=== PATIENT | female | born 1975 | race Caucasian/White ===

== ENCOUNTER 2019-02-26 08:30 | Day surgery (SDC) | payer BC ==
[~2019-02-26] VITALS: Ht 172.7 cm; Wt 97.6 kg
[~2019-02-26 08:30] MED LIST: HCTZ12.5TAB PO; MICROGESTIN 1/21 TAB PO; NORCO 325 MG-51 TAB PO; PERCOCET 325 MG1 TA2 PO; SYNTHROID0.125 MG/T PO; ZOFRAN ODT4 MG PO
[2019-02-26 09:23] VITALS: BP 137/63; PULSE 82; TEMP 97.2
[2019-02-26 09:59] LABS: CALCIUM 9.1 mg/dL (8.4-10.2); CREATININE, serum 0.76 (0.52-1.25)
[2019-02-26] MEDS ORDERED: CHANTIX 1MG1 MG PO (10:04)
[2019-02-26 13:07] VITALS: BP 122/71; PULSE 73
--- NOTE | 2019-02-26 13:07 | NUR ---
Patient returns to room 4 per cart from surgery and is awake and alert. IV fluids infusing #22G RW. Siderails up x2 and call light in reach. Spouse in room and patient is taking water and denies pain or nausea.
[2019-02-26] MEDS ORDERED: MOTRIN 600600 MG/TAB PO (13:11)
[2019-02-26] MEDS ORDERED: ULTRAM 50MG TAB50 MG PO (13:11)
[2019-02-26] MEDS ORDERED: Work Release (13:14)
[2019-02-26 13:22] VITALS: BP 114/66; PULSE 67
--- NOTE | 2019-02-26 13:22 | NUR ---
Taking Sprite and eating muffin. Denies pain or nausea. Spouse in room.
[2019-02-26 13:37] VITALS: BP 116/69; PULSE 67
--- NOTE | 2019-02-26 13:37 | NUR ---
Rehman set dressing dry on the left upper arm. Continues to deny pain or nausea.
--- NOTE | 2019-02-26 13:45 | NUR ---
IV discontinued and patient is able to dress self. Spouse in the room.
--- NOTE | 2019-02-26 13:53 | NUR ---
Given dismissal instructions and instructions signed. Voices understanding of these.
--- NOTE | 2019-02-26 14:00 | NUR ---
Patient dismissed to home driven by spouse and taken to the front door per wheelchair accompanied by Geraldine REDMAN and assisted into car.
== END 2019-02-26 14:00 | disposition home or self-care (01) ==
LOC: SDCO 08:30
PROVIDERS: Nurse Anesthetist, Certified Registered
DX: D17.22 Benign lipomatous neoplasm of skin and subcutaneous tissue of left arm (principal); E05.00 Thyrotoxicosis with diffuse goiter without thyrotoxic crisis or storm; E89.0 Postprocedural hypothyroidism; M43.07 Spondylolysis, lumbosacral region; F41.9 Anxiety disorder, unspecified; F32.9 Major depressive disorder, single episode, unspecified; I10 Essential (primary) hypertension; K21.9 Gastro-esophageal reflux disease without esophagitis; R51 Headache; Z90.49 Acquired absence of other specified parts of digestive tract; Z83.3 Family history of diabetes mellitus; Z82.49 Family history of ischemic heart disease and other diseases of the circulatory system; F17.210 Nicotine dependence, cigarettes, uncomplicated; Z83.49 Family history of other endocrine, nutritional and metabolic diseases
CPT/HCPCS: J0690; J2405; J2704; J3010; J7120

== ENCOUNTER → 2019-05-07 | Outpatient (CLI) | payer BC ==
[~2019-05-07] MED LIST changes: +CHANTIX 1MG1 MG PO; +MOTRIN 600600 MG/TAB PO; +ULTRAM 50MG TAB50 MG PO; +Work Release
== END ==
LOC: COL.RAD 12:54
DX: Z13.6 Encounter for screening for cardiovascular disorders (principal); M79.89 Other specified soft tissue disorders

== ENCOUNTER 2021-09-29 09:04 | Day surgery (SDC) | payer BC ==
[~2021-09-29] VITALS: Ht 175.3 cm; Wt 100.9 kg
[2021-09-29 09:13] VITALS: BP 147/86; PULSE 78; TEMP 97.2
[2021-09-29] MEDS ORDERED: NEXPLANON68 MG ID (09:22)
[2021-09-29] MEDS ORDERED: IMITREX50 MG PO (09:23)
[2021-09-29] MEDS ORDERED: EUTHYROX137 MCG PO (09:23)
[2021-09-29] MEDS ORDERED: BUSPAR5 MG PO (09:25)
[2021-09-29] MEDS ORDERED: BUSPAR10 MG PO (09:25)
[2021-09-29] MEDS ORDERED: CELEXA 20MG20 MG/TAB PO (09:25)
[2021-09-29 10:25] VITALS: BP 123/57; PULSE 81; TEMP 98.2
--- NOTE | 2021-09-29 10:25 | NUR ---
Pt returned via cart to recliner in bay 4. Oriented. VSS-documented. Pts given muffin and coffee per request. Legs elevated for comfort in recliner and call light placed in reach.
[2021-09-29 10:30] VITALS: BP 117/75; PULSE 76
[2021-09-29 10:45] VITALS: BP 119/75; PULSE 72
[2021-09-29 11:00] VITALS: BP 119/67; PULSE 72
--- NOTE | 2021-09-29 11:40 | NUR ---
Pts VS remain stable. Tolerated oral intake. Dr Reina in to see pt post procedure. DC teaching completed, pt verbalized understanding. Pt dressed after IV removed and pressure dressing applied. Pt taken via wheelchair to private vehicle for dc home with driving.
== END 2021-09-29 11:40 | disposition home or self-care (01) ==
LOC: SDCO 09:04
DX: Z12.11 Encounter for screening for malignant neoplasm of colon (principal); K64.0 First degree hemorrhoids; F17.210 Nicotine dependence, cigarettes, uncomplicated
CPT/HCPCS: J2704; J7030